=== PATIENT | male | born 1945 | race Hispanic/Latino ===

== ENCOUNTER 2018-09-25 07:36 | Day surgery (SDC) | payer MEDICARE, MEDICAID ==
[2017-02-08 08:02] VITALS: BMI 47.5
[2018-09-25] MEDS ORDERED: Etomidate 20 mg/10ml Inj IV ONE (08:45)
[2018-09-25] MEDS ORDERED: Midazolam 2 MG/2 ML VIAL ONE (09:03)
[2018-09-25] MEDS ORDERED: Propofol 10 mg/ml Inj (20 ML) ONE (09:06)
[2018-09-25] MEDS ORDERED: Sodium Chloride 0.9% 1,000 ML IV SCH (09:30)
[2018-09-25 11:01] VITALS: BP 138/64; PULSE 69; RESP 17; TEMP 98.1; O2SAT 97
== END 2018-09-25 10:46 | disposition home or self-care (01) ==
LOC: ENDO 07:36
PROVIDERS: ATTEND Specialist
DX: K31.7 Polyp of stomach and duodenum (principal)
CPT/HCPCS: 43251; 88305; 88342; J2250; J2704; J7030; J7040